=== PATIENT | female | born 1995 | race Caucasian/White ===

== ENCOUNTER 2018-12-21 23:38 | Emergency (ER) | payer OTHER ==
[2018-12-22] VITALS: BP 130/79
[2018-12-22] MEDS ORDERED: AMOX/CLAV 875 MG TAB PO ONE
[2018-12-22] MEDS ORDERED: DIPHTH/TETANUS/ACEL. PERTUSSIS IM ONLY ONE
--- NOTE | 2018-12-22 | ER Report ---
History and Physical Time Seen By MD: 23:47 Hx. of Stated Complaint: PATIENT WAS BITTEN BY A FOSTER CAT LAST NIGHT AROUND 0100/0200. PATIENT HAS TINY SCRATCHES AND PUNCTURE WOUNDS ON RIGHT HAND. PATIENT STATES CAT HAD A SWOLLEN PAW FOR A WHILE AND THEN HE WAS FOUND THIS EVENING. HPI/ROS CHIEF COMPLAINT: cat bite HISTORY OF PRESENT ILLNESS: This is a 23 year old female. She was taking care of a cat for friends. The cat had swollen painful leg and paw, and when she picked the cat up, the cat bit her right hand. Punctures near the MCP joint of the rigoberto mb and scratches on dorsal hand. This happened last night. Cleaned the wound, now getting more painful. The cat was a rescue and just saw the vet and had shots. The cat tonight. They said that the cat's manager of maintenance would be looking into what happened to the cat to cause the . Allergies: Coded Allergies: No Known Drug Allergies (Unverified , 12/21/18) Home Meds Active Scripts Amoxicillin/Pot Clav 875-125 Mg Tab (AUGMENTIN 875-125 TABLET) 1 Each Tablet, 1 TAB PO Q12H, #20 TAB 0 Refills Prov:LEXIE FALK MD 12/22/18 Reviewed Nurses Notes: Yes Constitutional Vital Sign - Last 24 Hours 12/21/18 12/21/18 12/22/18 12/22/18 23:45 23:53 00:00 00:08 Temp 99.3 Pulse 79 76 80 Resp 16 B/P (MAP) 135/82 130/79 (96) Pulse Ox 91 92 93 O2 Delivery Room Air Physical Exam General: Alert, no acute distress. Skin: Punctures around right 1st MCP joint. Skin is red. Clear serous drainage, but no purulence noted. No fluctuance or effusion noted. Skin is warm compared to surrounding skin. Scratches on dorsal hand and fingers. Musculoskeletal: Full range of motion without deficits. Neuro: Normal sensation. Cardio: Normal cap refill. Medical Decision Making ED Course/Re-evaluation ED Course Would scrubbed and cleaned followed with antibiotic ointment and dressing. Started on Augmentin twice a day for 10 days. Decision to Disposition Date: Dec 22, 2018 Decision to Disposition Time: 00:01 Depart Departure Latest Vital Signs Vital Signs Date Time Temp Pulse Resp B/P (MAP) Pulse Ox O2 Delivery O2 Flow Rate FiO2 12/22/18 00:08 80 93 12/22/18 00:00 130/79 (96) 12/21/18 23:45 99.3 16 Room Air Impression: Primary Impression: Cat bite of hand Condition: Improved Disposition: HOME OR SELF-CARE New Scripts Amoxicillin/Pot Clav 875-125 Mg Tab (AUGMENTIN 875-125 TABLET) 1 Each Tablet 1 TAB PO Q12H, #20 TAB 0 Refills Prov: LEXIE FALK MD 12/22/18 Patient Instructions: Animal Bite (ED), Cellulitis (ED) Additional Instructions: Start the antibiotic Augmentin 875/125 twice a day for 10 days. Wash the wound twice a day with soap and water. Please make sure that you follow-up with the cat manager of maintenance for the reason for the cats . Contacting [facility] Animal Control department to make a report can help facilitate follow-up on this. It appears that the bite was from the cat being in pain, so would be considered a provoked attack and we do not have to worry about Rabies at this time. With animal bites, we recommend updating the patient's tetanus immunization status, which has been done tonight. Problem Qualifiers Primary Impression: Cat bite of hand Encounter type: initial encounter Laterality: right Qualified Codes: S61.451A - Open bite of right hand, initial encounter; W55.01XA - Bitten by cat, initial encounter LEXIE FALK MD Dec 22, 2018 00:00
[2018-12-22] MEDS ORDERED: AMOX-559 PO (00:02)
== END 2018-12-22 00:27 | disposition home or self-care (01) ==
LOC: ER 23:58
DX: S61.451A Open bite of right hand, initial encounter (principal); W55.01XA Bitten by cat, initial encounter
CPT/HCPCS: 90471; 90715; 99283